=== PATIENT | female | born 1965 | race Caucasian/White ===

== ENCOUNTER 2017-05-15 12:02 | Emergency (ER) | payer MEDICAID ==
[~2017-05-15] VITALS: Ht 5283.9 cm; Wt 68.0 kg
[2017-05-15 12:20] VITALS: BP 132/80
[2017-05-15] MEDS ORDERED: PERM60CR19 TP (13:07)
== END 2017-05-15 13:08 | disposition left against medical advice (07) ==
LOC: ER 12:02
DX: L29.9 Pruritus, unspecified (principal); I10 Essential (primary) hypertension; Z86.19 Personal history of other infectious and parasitic diseases; Z79.899 Other long term (current) drug therapy
CPT/HCPCS: 99282

== ENCOUNTER 2020-08-06 00:50 | Emergency (ER) | payer MEDICAID ==
[~2020-08-06] VITALS: Ht 160 cm; Wt 54.9 kg
[2020-08-06] MEDS ORDERED: orphenadrine citrate 60mg/2ml inj. IM ONE (01:45)
[2020-08-06] MEDS ORDERED: ketorolac trometh inj. 60 MG/2 ML VIAL IM ONE (01:45)
[2020-08-06] MEDS ORDERED: HYDROcodone/acetaminophen 5mg/325mg tablet PO ONE (01:45)
[2020-08-06] MEDS ORDERED: acetaminophen 325mg tablet PO ONE (01:45)
[2020-08-06 04:24] VITALS: BP 142/76
== END 2020-08-06 04:20 | disposition home or self-care (01) ==
LOC: ER 00:51
DX: M54.9 Dorsalgia, unspecified (principal); M79.18 Myalgia, other site; R10.84 Generalized abdominal pain; I10 Essential (primary) hypertension; F32.9 Major depressive disorder, single episode, unspecified; Z72.89 Other problems related to lifestyle
CPT/HCPCS: 96372; 99284; J1885; J2360

== ENCOUNTER 2020-09-12 12:13 | Emergency (ER) | payer MEDICAID ==
[~2020-09-12] VITALS: Ht 160 cm; Wt 51.9 kg
[2020-09-12 13:13] VITALS: BP 114/78
[2020-09-12] MEDS ORDERED: normal saline 1000ML IV soln IV ONE (18:35)
[2020-09-12] MEDS ORDERED: CefTRIAXone 2gm/D5W 50ml BAG 50 ML IV ONE (18:35)
[2020-09-12] MEDS ORDERED: vancomycin/NS 1 GM ADD-VANTAGE 250 ML IV ONE (18:35)
[2020-09-12] MEDS ORDERED: HYDROcodone/acetaminophen 5mg/325mg tablet PO ONE (19:25)
[2020-09-12] MEDS ORDERED: ondansetron 4mg rapidly disintigrating tab PO ONE (19:25)
[2020-09-12 19:26] LABS: BASOPHILS # (AUTO) 0.1 X10'3 (0-0.2); BASOPHILS % (AUTO) 0.5 % (0-1); EOSINOPHILS # (AUTO) 0.2 X10'3 (0-0.9); EOSINOPHILS % (AUTO) 1.6 % (0-6); HEMOGLOBIN 10.1 g/dl (12.0-16.0); LYMPHOCYTES # (AUTO) 3.5 X10'3 (1.1-4.8); LYMPHOCYTES % (AUTO) 31.5 % (21-51); MEAN CORPUSCULAR HEMOGLOBIN 30.5 PG (27.0-31.0); MEAN CORPUSCULAR HGB CONC 33.8 g/dL (33.0-36.5); MEAN CORPUSCULAR VOLUME 90.3 FL (78-98); MONOCYTES # (AUTO) 0.9 X10'3 (0-0.9); MONOCYTES % (AUTO) 7.7 % (2-12); NEUTROPHILS # (AUTO) 6.6 X10'3 (1.8-7.7); NEUTROPHILS % (AUTO) 58.7 % (42-75); PLATELET COUNT 356 X10'3 (140-440); RED BLOOD COUNT 3.33 X10'6 (4.20-5.60); RED CELL DISTRIBUTION WIDTH 13.6 % (11.5-14.5); WHITE BLOOD COUNT 11.3 X10'3 (4.5-11.0)
[2020-09-12 19:47] LABS: ALANINE AMINOTRANSFERASE 12 U/L (12-78); ALBUMIN 3.6 G/DL (3.4-5.0); ALBUMIN/GLOBULIN RATIO 0.7 (1.1-1.5); ALKALINE PHOSPHATASE 131 IU/L (46-116); ANION GAP 14 (8-16); ASPARTATE AMINO TRANSFERASE 12 U/L (10-37); BILIRUBIN,TOTAL 0.2 MG/DL (0.1-1.0); BLOOD UREA NITROGEN 30 MG/DL (7-18); BUN/CREATININE RATIO 18.9 (6.6-38.0); CALCIUM 9.7 MG/DL (8.5-10.1); CHLORIDE 102 MMOL/L (99-107); CREATININE 1.59 MG/DL (0.40-0.90); GLUCOSE 114 MG/DL (70-104); POTASSIUM 3.4 MMOL/L (3.5-5.1); SODIUM 142 MMOL/L (135-145); TOTAL CARBON DIOXIDE 25.9 MMOL/L (24-32); TOTAL PROTEIN 8.7 G/DL (6.4-8.2); eGFR 34 ML/MIN
[2020-09-12] MEDS ORDERED: potassium Cl 20 mEq SR tablet PO ONE (20:05)
[2020-09-12 20:28] LABS: C-REACTIVE PROTEIN 2.98 MG/DL (0.0-0.5)
[2020-09-12] MEDS ORDERED: SULF1TAB45 PO (22:36)
[2020-09-12] MEDS ORDERED: ACET-1025 PO (22:37)
--- NOTE | 2020-09-17 15:13 | NUR ---
ATTEMPTED TO CALL PT REGARDING VISIT ON 09/12. RECEIVED A MSG "PHONE CALL CAN NOT BE COMPEATED AT THIS TIME, PLEASE TRY AGAIN LATER". UNABLE TO LEAVE MSG.
--- NOTE | 2020-09-18 16:20 | NUR ---
Attempted to call patient at listed next of kin number due to patient not having a phone number listed, call could not be completed at dialed. No listed address to send letter.
--- NOTE | 2020-09-18 16:23 | NUR ---
Per Dr. Stubbs, patient is to be paced on clindamycin 300 mg PO QID x 10 days Disp #40 and to stop taking Septra.
== END 2020-09-12 22:47 | disposition home or self-care (01) ==
LOC: ER 12:13
DX: T81.40XA Infection following a procedure, unspecified, initial encounter (principal); M25.571 Pain in right ankle and joints of right foot; I10 Essential (primary) hypertension; F32.9 Major depressive disorder, single episode, unspecified; Z72.89 Other problems related to lifestyle; Z79.899 Other long term (current) drug therapy; Y92.89 Other specified places as the place of occurrence of the external cause; Y82.8 Other medical devices associated with adverse incidents
CPT/HCPCS: 36415; 73610; 80053; 83605; 84145; 85025; 85651; 86140; 87040; 87070; 87077; 87186; 96365; 96368; 99284; J0696; J3370; J7030

== ENCOUNTER 2021-01-09 13:02 | Emergency (ER) | payer MEDICAID ==
[~2021-01-09] VITALS: Ht 157.5 cm; Wt 54.0 kg
[2021-01-09 13:10] VITALS: BP 169/114
[2021-01-09 13:55] LABS: BASOPHILS # (AUTO) 0.1 X10'3 (0-0.2); BASOPHILS % (AUTO) 0.7 % (0-1); EOSINOPHILS # (AUTO) 0.2 X10'3 (0-0.9); EOSINOPHILS % (AUTO) 1.8 % (0-6); HEMATOCRIT 39.3 % (35.0-45.0); HEMOGLOBIN 13.6 g/dl (12.0-16.0); LYMPHOCYTES # (AUTO) 2.4 X10'3 (1.1-4.8); LYMPHOCYTES % (AUTO) 27.4 % (21-51); MEAN CORPUSCULAR HEMOGLOBIN 30.8 PG (27.0-31.0); MEAN CORPUSCULAR HGB CONC 34.6 g/dL (33.0-36.5); MEAN PLATELET VOLUME 8.4 FL (7.4-10.4); MONOCYTES # (AUTO) 0.6 X10'3 (0-0.9); MONOCYTES % (AUTO) 6.8 % (2-12); NEUTROPHILS # (AUTO) 5.7 X10'3 (1.8-7.7); NEUTROPHILS % (AUTO) 63.3 % (42-75); PLATELET COUNT 438 X10'3 (140-440); RED BLOOD COUNT 4.42 X10'6 (4.20-5.60); RED CELL DISTRIBUTION WIDTH 13.5 % (11.5-14.5); WHITE BLOOD COUNT 8.9 X10'3 (4.5-11.0)
[2021-01-09 14:03] LABS: ALANINE AMINOTRANSFERASE 17 U/L (12-78); ALBUMIN 3.9 G/DL (3.4-5.0); ALBUMIN/GLOBULIN RATIO 0.8 (1.1-1.5); ALKALINE PHOSPHATASE 153 IU/L (46-116); ANION GAP 8 (8-16); ASPARTATE AMINO TRANSFERASE 16 U/L (10-37); BILIRUBIN,TOTAL 0.3 MG/DL (0.1-1.0); BLOOD UREA NITROGEN 11 MG/DL (7-18); BUN/CREATININE RATIO 11.6 (6.6-38.0); CALCIUM 9.9 MG/DL (8.5-10.1); CHLORIDE 103 MMOL/L (99-107); CREATININE 0.95 MG/DL (0.40-0.90); GLUCOSE 106 MG/DL (70-104); LIPASE 136 U/L (73-393); POTASSIUM 3.1 MMOL/L (3.5-5.1); SODIUM 142 MMOL/L (135-145); TOTAL CARBON DIOXIDE 30.6 MMOL/L (24-32); TOTAL PROTEIN 8.6 G/DL (6.4-8.2); eGFR 61 ML/MIN
[2021-01-10] MEDS ORDERED: FAMO40TA58 PO (22:01)
[2021-01-10] MEDS ORDERED: ONDA4TAB6 PO (22:01)
== END 2021-01-09 17:38 | disposition left against medical advice (07) ==
LOC: ER 13:02
DX: R10.9 Unspecified abdominal pain (principal); R11.10 Vomiting, unspecified; Z53.21 Procedure and treatment not carried out due to patient leaving prior to being seen by health care provider
CPT/HCPCS: 36415; 80053; 83690; 85025

== ENCOUNTER 2021-01-10 18:31 | Emergency (ER) | payer MEDICAID ==
[~2021-01-10] VITALS: Ht 160 cm; Wt 54.5 kg
[2021-01-10 19:37] LABS: ALANINE AMINOTRANSFERASE 17 U/L (12-78); ALBUMIN 3.9 G/DL (3.4-5.0); ALBUMIN/GLOBULIN RATIO 0.8 (1.1-1.5); ALKALINE PHOSPHATASE 152 IU/L (46-116); ANION GAP 11 (8-16); ASPARTATE AMINO TRANSFERASE 12 U/L (10-37); BILIRUBIN,TOTAL 0.3 MG/DL (0.1-1.0); BLOOD UREA NITROGEN 18 MG/DL (7-18); BUN/CREATININE RATIO 16.4 (6.6-38.0); CALCIUM 9.9 MG/DL (8.5-10.1); CHLORIDE 100 MMOL/L (99-107); GLUCOSE 120 MG/DL (70-104); LIPASE 152 U/L (73-393); POTASSIUM 3.1 MMOL/L (3.5-5.1); SODIUM 140 MMOL/L (135-145); TOTAL PROTEIN 8.8 G/DL (6.4-8.2); eGFR 51 ML/MIN
[2021-01-10 19:42] LABS: BASOPHILS % (AUTO) 0.5 % (0-1); EOSINOPHILS # (AUTO) 0.1 X10'3 (0-0.9); EOSINOPHILS % (AUTO) 1.1 % (0-6); HEMATOCRIT 40.6 % (35.0-45.0); LYMPHOCYTES # (AUTO) 2.3 X10'3 (1.1-4.8); LYMPHOCYTES % (AUTO) 24.9 % (21-51); MEAN CORPUSCULAR HEMOGLOBIN 30.8 PG (27.0-31.0); MEAN CORPUSCULAR HGB CONC 34.5 g/dL (33.0-36.5); MEAN CORPUSCULAR VOLUME 89.3 FL (78-98); MEAN PLATELET VOLUME 8.5 FL (7.4-10.4); MONOCYTES # (AUTO) 0.5 X10'3 (0-0.9); MONOCYTES % (AUTO) 5.8 % (2-12); NEUTROPHILS # (AUTO) 6.1 X10'3 (1.8-7.7); NEUTROPHILS % (AUTO) 67.7 % (42-75); PLATELET COUNT 456 X10'3 (140-440); RED BLOOD COUNT 4.55 X10'6 (4.20-5.60); RED CELL DISTRIBUTION WIDTH 13.7 % (11.5-14.5); WHITE BLOOD COUNT 9.1 X10'3 (4.5-11.0)
[2021-01-10] MEDS ORDERED: mag hydrox/Alum hydrox/simeth 30ml oral suspension PO ONE (20:00)
[2021-01-10] MEDS ORDERED: famotidine/PF 10 mg/ml inj IV ONE (20:00)
[2021-01-10] MEDS ORDERED: normal saline 1000ML IV soln IVB ONE (20:00)
[2021-01-10] MEDS ORDERED: pantoprazole 40 MG vial IV ONE (20:00)
[2021-01-10] MEDS ORDERED: metoclopramide 5 mg/ml inj IV ONE (20:00)
[2021-01-10 20:07] LABS: URINE HCG NEGATIVE (NEG)
[2021-01-10 20:18] LABS: COLOR,URINE YELLOW (Yellow); UA COLLECTION TYPE CLN CATCH MIDSTREAM
[2021-01-10 20:19] LABS: CLARITY,URINE CLOUDY (Clear); GLUCOSE, URINE NEGATIVE (Neg); KETONES,URINE TRACE mg/dl (Neg); LEUKOCYTE ESTERASE ,URINE NEGATIVE (Neg); NITRITES, URINE NEGATIVE (Neg); OCCULT BLOOD,URINE TRACE-INTACT (Neg); PROTEIN,URINE NEGATIVE (Neg); UROBILINOGEN,URINE 0.2 E.U/dL (0.2-1.0)
[2021-01-10 20:32] LABS: BACTERIA,URINE NONE SEEN /HPF (Neg); MUCUS STRANDS NONE SEEN /LPF (Neg); RBC,URINE 0-2 /HPF (0-2); SQUAMOUS EPITHELIAL CELL,UR MANY /LPF (FEW); WBC,URINE 0-4 /HPF (0-4)
[2021-01-10] MEDS ORDERED: potassium Cl 20 mEq SR tablet PO ONE (20:45)
[2021-01-10 21:20] VITALS: BP 141/96
[2021-01-10] MEDS ORDERED: ONDA4TAB6 PO (22:01)
[2021-01-10] MEDS ORDERED: FAMO40TA58 PO (22:01)
== END 2021-01-10 22:14 | disposition home or self-care (01) ==
LOC: ER 18:32
DX: R10.30 Lower abdominal pain, unspecified (principal); R11.2 Nausea with vomiting, unspecified; R30.0 Dysuria; R35.0 Frequency of micturition; E87.6 Hypokalemia; I10 Essential (primary) hypertension; Z87.11 Personal history of peptic ulcer disease; Z79.899 Other long term (current) drug therapy
CPT/HCPCS: 36415; 80053; 81001; 81025; 83605; 83690; 85025; 96361; 96374; 96375; 99284; C9113; J2765; J3490; J7030

== ENCOUNTER 2021-04-27 08:08 | Emergency (ER) | payer MEDICAID ==
[~2021-04-27] VITALS: Ht 160 cm; Wt 59.1 kg
[~2021-04-27 08:08] MED LIST: FAMO40TA58 PO; ONDA4TAB6 PO
[2021-04-27 08:17] VITALS: BP 118/81
[2021-04-27] MEDS ORDERED: CEPH-585 PO (10:58)
[2021-04-27] MEDS ORDERED: TRAM50TA2 PO (10:58)
== END 2021-04-27 11:09 | disposition home or self-care (01) ==
LOC: ER 08:08
DX: S90.01XA Contusion of right ankle, initial encounter (principal); I10 Essential (primary) hypertension; F32.9 Major depressive disorder, single episode, unspecified; X58.XXXA Exposure to other specified factors, initial encounter; Y93.89 Activity, other specified; Y92.89 Other specified places as the place of occurrence of the external cause; Y99.8 Other external cause status
CPT/HCPCS: 73610; 99283

== ENCOUNTER 2021-05-16 17:55 | Emergency (ER) | payer MEDICAID ==
[~2021-05-16] VITALS: Ht 160 cm; Wt 56.9 kg
[~2021-05-16 17:55] MED LIST changes: +CEPH-585 PO; +TRAM50TA2 PO
[2021-05-16 18:07] VITALS: BP 136/79
[2021-05-16] MEDS ORDERED: LIDOcaine 1% W/epiNEPHrine 1:200,000 10ml vial IJ ONE (18:40)
[2021-05-16] MEDS ORDERED: LIDOcaine 1% w/EPI 1:100,000 30ml vial (MDV) IJ ONE (19:15)
[2021-05-16] MEDS ORDERED: piperacillin/tazo 3.375gm/50ml 50 ML IV ONE (19:45)
[2021-05-16 20:19] LABS: BASOPHILS # (AUTO) 0.1 X10'3 (0-0.2); BASOPHILS % (AUTO) 0.8 % (0-1); EOSINOPHILS # (AUTO) 0.2 X10'3 (0-0.9); EOSINOPHILS % (AUTO) 2.3 % (0-6); HEMATOCRIT 33.3 % (35.0-45.0); HEMOGLOBIN 11.4 g/dl (12.0-16.0); LYMPHOCYTES % (AUTO) 30.9 % (21-51); MEAN CORPUSCULAR HEMOGLOBIN 30.3 PG (27.0-31.0); MEAN CORPUSCULAR HGB CONC 34.4 g/dL (33.0-36.5); MEAN CORPUSCULAR VOLUME 88.3 FL (78-98); MEAN PLATELET VOLUME 8.3 FL (7.4-10.4); MONOCYTES # (AUTO) 0.9 X10'3 (0-0.9); MONOCYTES % (AUTO) 9.2 % (2-12); NEUTROPHILS # (AUTO) 5.5 X10'3 (1.8-7.7); NEUTROPHILS % (AUTO) 56.8 % (42-75); PLATELET COUNT 304 X10'3 (140-440); RED BLOOD COUNT 3.77 X10'6 (4.20-5.60); RED CELL DISTRIBUTION WIDTH 14.9 % (11.5-14.5); WHITE BLOOD COUNT 9.7 X10'3 (4.5-11.0)
[2021-05-16 20:33] LABS: ALANINE AMINOTRANSFERASE 14 U/L (12-78); ALBUMIN 3.6 G/DL (3.4-5.0); ALBUMIN/GLOBULIN RATIO 0.8 (1.1-1.5); ALKALINE PHOSPHATASE 154 IU/L (46-116); ANION GAP 9 (8-16); ASPARTATE AMINO TRANSFERASE 13 U/L (10-37); BILIRUBIN,TOTAL 0.5 MG/DL (0.1-1.0); BLOOD UREA NITROGEN 15 MG/DL (7-18); C-REACTIVE PROTEIN 12.31 MG/DL (0.0-0.5); CHLORIDE 102 MMOL/L (99-107); GLUCOSE 91 MG/DL (70-104); POTASSIUM 3.1 MMOL/L (3.5-5.1); SODIUM 139 MMOL/L (135-145); TOTAL PROTEIN 7.9 G/DL (6.4-8.2); eGFR 57 ML/MIN
[2021-05-16] MEDS ORDERED: sulfamethoxazole/trimethoprim DS (800/160mg) tablet PO ONE (21:45)
[2021-05-16] MEDS ORDERED: SULF1TAB49 PO (21:52)
== END 2021-05-16 22:18 | disposition home or self-care (01) ==
LOC: ER 17:55
DX: L02.415 Cutaneous abscess of right lower limb (principal); M25.571 Pain in right ankle and joints of right foot; I10 Essential (primary) hypertension; F32.A Depression, unspecified; Z87.11 Personal history of peptic ulcer disease; Z72.89 Other problems related to lifestyle; Z79.2 Long term (current) use of antibiotics; Z79.899 Other long term (current) drug therapy
CPT/HCPCS: 10060; 36415; 73610; 80053; 84145; 85025; 85651; 86140; 96365; 99284; J2543

== ENCOUNTER 2021-08-24 11:47 | Emergency (ER) | payer MEDICAID ==
[~2021-08-24] VITALS: Ht 160 cm; Wt 54.5 kg
[~2021-08-24 11:47] MED LIST changes: -TRAM50TA2 PO
[2021-08-24 13:29] VITALS: BP 147/70
== END 2021-08-24 16:49 | disposition home or self-care (01) ==
LOC: ER 11:48
DX: S91.001A Unspecified open wound, right ankle, initial encounter (principal); I10 Essential (primary) hypertension; F32.9 Major depressive disorder, single episode, unspecified; Z72.89 Other problems related to lifestyle; Z79.899 Other long term (current) drug therapy; X58.XXXA Exposure to other specified factors, initial encounter; Y93.89 Activity, other specified; Y92.89 Other specified places as the place of occurrence of the external cause; Y99.8 Other external cause status
CPT/HCPCS: 73600; 96372; 99283

== ENCOUNTER 2022-10-13 19:57 | Emergency (ER) | payer MEDICAID ==
[~2022-10-13 19:57] MED LIST changes: -CEPH-585 PO
== END 2022-10-13 21:09 | disposition left against medical advice (07) ==
LOC: ER 19:58
DX: M54.9 Dorsalgia, unspecified (principal); Z53.21 Procedure and treatment not carried out due to patient leaving prior to being seen by health care provider

== ENCOUNTER 2023-12-01 12:58 | Emergency (ER) | payer MEDICAID ==
[~2023-12-01] VITALS: Ht 160 cm; Wt 51.7 kg
[2023-12-01 13:25] VITALS: BP 121/100; PULSE 99; RESP 21; TEMP 98.2; O2SAT 97
[2023-12-01 14:24] LABS: STREP A SCREEN NEGATIVE (Neg)
== END 2023-12-01 14:47 | disposition left against medical advice (07) ==
LOC: ER 12:59
DX: J02.9 Acute pharyngitis, unspecified (principal); Z53.21 Procedure and treatment not carried out due to patient leaving prior to being seen by health care provider
CPT/HCPCS: 87081; 87880

== ENCOUNTER → 2024-04-30 | Emergency (ER) | payer MEDICAID | END | disposition left against medical advice (07) | LOC: ER 19:37 | DX: Z53.21 Procedure and treatment not carried out due to patient leaving prior to being seen by health care provider (principal) ==

== ENCOUNTER 2024-06-09 17:35 | Emergency (ER) | payer MEDICAID ==
[~2024-06-09] VITALS: Ht 157.5 cm; Wt 43.7 kg
[2024-06-09 17:41] VITALS: BP 135/90; PULSE 100; TEMP 97.6; O2SAT 95
[2024-06-09] MEDS: ketorolac trometh 30MG/ML vial 30 MG/ML VIAL IM ONE (19:23)
[2024-06-09] MEDS: ketorolac trometh 15mg/ml vial 15 MG/ML ML IM ONE (19:23)
[2024-06-09 20:23] VITALS: RESP 16
[2024-06-09] MEDS ORDERED: CYCL-1 PO (20:47)
[2024-06-09] MEDS ORDERED: LIDO700A32 TOP (20:47)
== END 2024-06-09 21:03 | disposition home or self-care (01) ==
LOC: ER 17:36
DX: M79.671 Pain in right foot (principal); S90.01XA Contusion of right ankle, initial encounter; I10 Essential (primary) hypertension; V89.2XXA Person injured in unspecified motor-vehicle accident, traffic, initial encounter; Y93.89 Activity, other specified; Y92.89 Other specified places as the place of occurrence of the external cause; Y99.8 Other external cause status
CPT/HCPCS: 73590; 73610; 73630; 96372; 99284; J1885

== ENCOUNTER 2024-10-05 13:49 | Emergency (ER) | payer MEDICAID ==
[~2024-10-05] VITALS: Ht 160 cm; Wt 53.5 kg
[~2024-10-05 13:49] MED LIST changes: +CYCL-1 PO; +DONE-53 PO; +LIDO-52 TOP; +LISI10TA27 PO; +RISP1TAB13 PO
--- NOTE | 2024-10-05 14:44 | RADIOLOGY REPORT ---
EXAM: DI SHOULDER, COMPLETE (MIN 2 VWS) HISTORY: Shoulder Pain COMPARISON: None TECHNIQUE: AP and scapular Y views of the right shoulder were performed. FINDINGS: No acute fracture or dislocation are identified about the right shoulder. No significant degenerativ e changes or loss of subacromial space. IMPRESSION: Unremarkable radiographs of the right shoulder.
[2024-10-05] MEDS ORDERED: HYDR-3965 PO (15:01)
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
[2024-10-05 15:15] VITALS: BP 136/70; PULSE 71; RESP 17; TEMP 98; O2SAT 98
== END 2024-10-05 15:16 | disposition home or self-care (01) ==
LOC: ER 13:50
DX: M25.511 Pain in right shoulder (principal); I10 Essential (primary) hypertension; Z87.11 Personal history of peptic ulcer disease
CPT/HCPCS: 73030; 99284

== ENCOUNTER 2024-10-11 19:57 | Emergency (ER) | payer MEDICAID ==
[~2024-10-11] VITALS: Ht 160 cm; Wt 56.5 kg
[~2024-10-11 19:57] MED LIST changes: +HYDR-3965 PO
[2024-10-11 21:00] VITALS: BP 164/103; PULSE 86; RESP 18; O2SAT 99
--- NOTE | 2024-10-11 21:49 | Physician Documentation ---
History of Present Illness ~ Chief Complaint: Laceration Stated Complaint: FINGER PAIN Time Seen by MD: 21:36 Primary Medical Doctor: Irma Lundy HPI 59-year-old female presents to the ED with a complaint of a laceration on her right 5th finger. She states she cut her finger on a fence today. Reports being up-to-date on her tetanus Day of Onset: Oct 11, 2024 Tetanus Within 5 Years: No (2015) Medication Reconciliation Allergies: Coded Allergies: No Known Allergies (Unverified , 10/11/24) Scheduled Cyclobenzaprine* (Cyclobenzaprine*), 1 TAB PO HS Donepezil Hcl (Donepezil Hcl), 15 MG PO HS Famotidine (Famotidine), 1 TAB PO DAILY Lidocaine (Lidoderm), 1 PATCH TOP DAILY Lisinopril (Lisinopril), 10 MG PO DAILY Ondansetron Hcl (Zofran), 1 TAB PO Q6H Risperidone (Risperdal), 1 TAB PO HS Discontinued Medications Hydrocodone Bit/Acetaminophen 5/325 MG ([place] 5/325 MG), 1 TAB PO TID PRN PRN for pain Discontinued Reason: Auto Discontinued Past Medical History Past Medical History: Hypertension, Peptic Ulcer Disease, Depression Past Surgical History: no surgical history Alcohol Use: Sober Drug Use: none Lives with: Family, Other Lives In: Home Occupation: employed Review of Systems All Other Systems at this time: Reviewed and Negative ROS As stated above in the HPI, otherwise all systems are reviewed and negative. Physical Exam Vital Signs: Temperature: 98.2, Source: Temporal, Heart Rate: 86, Respiratory Rate: 18, BP: 164/103, Pulse Oximetry: 99, Weight: 56.550 Oxygen Flow Rate: 0 Physical Exam General: Alert, no apparent distress. HEENT: PERRL, EOMI, no injection, moist mucous membranes. Extremities: Normal range of motion, laceration proximal phalanges bleeding controlled Neurologic: Oriented x4. Psychiatric: Normal mood and affect. Skin: Normal color, warm and dry. No edema, no ecchymosis. Procedures Laceration/Wound Repair Laceration : Prep: irrigated by nurse Wound Repaired With: Dermabond Progress Results/Orders Results/Orders Completed Orders - ANDERSON LEON NP Lidocaine/Epi/Tetracaine Top (Lidocaine/ (10/11/24 21:45) Tetanus/Pertuss/Diph Acell/Pf (Boostrix (10/11/24 22:15) Vital Signs 10/11/24 10/11/24 21:00 22:06 Temp 98.2 98.2 Pulse 86 Resp 18 B/P (MAP) 164/103 Pulse Ox 99 O2 Flow Rate 0 Medical Decision Making Findings Spoke to this patient did not and I advised that she requires sutures her hand to prevent infection and promote healing. She adamantly refused said that she only wanted glue on her finger. I repeated that that has not the best medical choice for this patient. She refused again. This time she agreed to get skin glue. and a tetanus shot. advised of the risks up to including loss of the finger secondary to infection. Differential Dx:Considerations: Include: Abrasion, Avulsion, Contusion, Laceration, Fracture, Hematoma, Neurovascular injury, Retained foreign body, Other Departure Disposition: 01 HOME / SELF CARE / HOMELESS Impression: Primary Impression: Laceration Condition: Improved Discharge Instructions: Laceration Care (Skin Glue) Referrals: NO PRIMARY CARE PROVIDER (PCP) Prescriptions Doxycycline Monohydrate (Doxycycline Monohydrate) 100 Mg Capsule 1 CAP PO Q12H for 10 Days, #20 CAP Prov: ANDERSON LEON NP 10/11/24 Education Educated: Patient Educated regarding: diagnosis Signature Scribe Signature: logan Attestation: Scribed for Anderson Leon Vessel Traffic Officer by Anderson Mcbride NP . 10/11/24 21:49 ANDERSON LEON NP Oct 11, 2024 21:49
[2024-10-11] MEDS: LIDOcaine/epinephrine/tetracaine TOPICAL sol 3 ML syringe TOP ONE (22:00)
[2024-10-11 22:06] VITALS: TEMP 98.2
[2024-10-11] MEDS ORDERED: TETanus/Pertussis (Acell)/Diphther VAC/PF (Tdap-Adult) 0.5ml syringe IMVAC ONE (22:15)
[2024-10-11] MEDS ORDERED: DOXY-462 PO (22:26)
== END 2024-10-11 22:14 | disposition home or self-care (01) ==
LOC: ER 19:57
DX: S61.216A Laceration without foreign body of right little finger without damage to nail, initial encounter (principal); I10 Essential (primary) hypertension; F32.A Depression, unspecified; Z79.899 Other long term (current) drug therapy; W26.8XXA Contact with other sharp object(s), not elsewhere classified, initial encounter; Y93.89 Activity, other specified; Y92.89 Other specified places as the place of occurrence of the external cause; Y99.8 Other external cause status
CPT/HCPCS: 12001; 99283; J7030

== ENCOUNTER 2025-02-06 18:10 | Inpatient (IN) | payer MEDICAID, SELFPAY ==
[~2025-02-06] VITALS: Ht 157.5 cm; Wt 57.0 kg
[~2025-02-06 18:10] MED LIST changes: -HYDR-3965 PO
[2025-02-06 18:43] LABS: MEAN PLATELET VOLUME 8.5 FL (7.4-10.4); RED CELL DISTRIBUTION WIDTH 13.7 % (11.5-14.5)
[2025-02-06 19:03] LABS: CREATININE 0.94 MG/DL (0.40-0.90); PRO BRAIN NATRIURETIC PEPTIDE 126 PG/ML (0-125); TOTAL CARBON DIOXIDE 28.9 MMOL/L (24-32); eCRCL 50 ML/MIN; eGFR 61 ML/MIN
--- NOTE | 2025-02-06 19:05 | RADIOLOGY REPORT ---
CLINICAL HISTORY: CP TECHNIQUE: Single view of the chest was obtained. COMPARISON: None FINDINGS: The heart size and pulmonary vasculature are normal. The lungs are clear. IMPRESSION: NO ACUTE CARDIOPULMONARY PROCESS.
[2025-02-06 21:42] LABS: LEUKOCYTE ESTERASE ,URINE NEGATIVE (Neg); NITRITES, URINE POSITIVE (Neg); OCCULT BLOOD,URINE NEGATIVE (Neg)
[2025-02-06 21:51] LABS: UA COLLECTION TYPE CLN CATCH MIDSTREAM
[2025-02-06 21:54] LABS: SQUAMOUS EPITHELIAL CELL,UR MODERATE /LPF (FEW)
--- NOTE | 2025-02-06 22:08 | Physician Documentation ---
History of Present Illness ~ Chief Complaint: Syncope Stated Complaint: SYNCOPE Time Seen by MD: 21:58 Primary Medical Doctor: Irma Lundy Mode of Arrival: EMS HPI Patient presents to the emergency room brought in from the [place] with the parent syncopal episodes. Significant other at bedside states that they were just getting ready for dinner and that has some concern of blood pressure and she started passing out multiple times. Nurse has witnessed syncopal episodes and describes in his atypical. No postictal period. Patient states that she does not remember anything. She does endorse some degree of chest pain. Medication Reconciliation Allergies: Coded Allergies: No Known Allergies (Unverified , 02/06/25) Scheduled Donepezil Hcl (Donepezil Hcl), 1 TAB PO DAILY, (Reported) Famotidine (Famotidine), 1 TAB PO BID, (Reported) Lisinopril/Hydrochlorothiazide (Lisinopril-Hctz 20-12.5 mg Tab), 1 TAB PO BID, (Reported) Risperidone (Risperidone), 1 TAB PO HS, (Reported) Miscellaneous Medications Albuterol Sulfate/Budesonide (Airsupra 90-80 Mcg Inhaler), (Reported) Discontinued Medications Cyclobenzaprine* (Cyclobenzaprine*), 1 TAB PO HS Discontinued Reason: Other Donepezil Hcl (Donepezil Hcl), 15 MG PO HS Discontinued Reason: Other Famotidine (Famotidine), 1 TAB PO DAILY Discontinued Reason: Other Lidocaine (Lidoderm), 1 PATCH TOP DAILY Discontinued Reason: Other Lisinopril (Lisinopril), 10 MG PO DAILY Discontinued Reason: Other Ondansetron Hcl (Zofran), 1 TAB PO Q6H Discontinued Reason: Other Risperidone (Risperdal), 1 TAB PO HS Discontinued Reason: Other Past Medical History Past Medical History: Hypertension, Peptic Ulcer Disease, Depression Past Surgical History: no surgical history Alcohol Use: Sober Drug Use: none Lives with: Family, Other Lives In: Home Occupation: employed Review of Systems ROS All review of systems negative except as per HPI Physical Exam Vital Signs: Temperature: 98.4, Source: Oral, Heart Rate: 98, Respiratory Rate: 19, BP: 140/91, Pulse Oximetry: 97, Weight: 57.000 Oxygen Flow Rate: 0 Physical Exam General: Patient is awake, alert, oriented x4 in no acute distress Head: Normocephalic and atraumatic. Eyes: Conjunctival normal. EOMI. PERRL. ENT: Mucous membranes moist. Neck: Supple, trachea is midline. Chest: Clear to auscultation bilaterally without rales, rhonchi, or wheezes. There is no accessory muscle use or retractions. Cardiac: RRR without murmurs, gallops, or rubs. Extremities: Normal strength. Normal range of motion. No deformities or edema. No calf tenderness to palpation Progress Results/Orders Results/Orders Orders - ALY VINES MD Chest,Single View (02/06/25 18:22) Monitor (02/06/25 18:22) Saline Lock (02/06/25 18:22) Oxygen (02/06/25 18:22) Electrocardiogram (02/06/25 18:22) Cult Urine + [place] [address] (02/06/25 21:56) Page Hospitalist (02/06/25 22:08) Fill Out Med Reconciliation (02/06/25 22:08) Completed Orders - ALY VINES MD Chest,Single View (02/06/25 18:22) Cbc/Diff (02/06/25 18:22) BMP (02/06/25 18:22) PBNP (02/06/25 18:22) Hs Troponin I W Calculations (02/06/25 18:22) Hs Troponin I W Calculations (02/06/25 20:22) Hs Troponin I W Calculations (02/06/25 21:22) Ua W/Microscopic, Cult If Ind (02/06/25 20:42) Drug Screen, Urine (02/06/25 21:59) Acetaminophen 325mg Tablet (Tylenol Tabl (02/06/25 22:10) Medications Received in ER Medications (Trade) Dose Ordered Sig/Tanner Route PRN Reason Start Time Stop Time Status Last Admin Dose Admin (Tylenol tablet) 325 mg ONCE ONCE PO 02/06/25 22:10 02/06/25 22:11 DC 02/06/25 22:12 325 MG Vital Signs 02/06/25 02/06/25 02/06/25 02/06/25 18:15 18:27 19:34 20:45 Temp 98.4 Pulse 105 100 98 Resp 20 16 21 19 B/P (MAP) 163/104 131/73 (92) 140/91 (107) Pulse Ox 99 98 97 O2 Flow Rate 0 0 0 02/06/25 22:05 Pulse 99 Resp 17 B/P (MAP) 153/103 (120) Pulse Ox 98 O2 Flow Rate 0 Laboratory Tests Test 02/06/25 18:26 02/06/25 20:42 02/06/25 20:51 02/06/25 21:19 White Blood Count 7.6 Red Blood Count 4.13 L Hemoglobin 12.3 Hematocrit 36.3 Mean Corpuscular Volume 87.8 Mean Corpuscular Hemoglobin 29.6 Mean Corpuscular Hemoglobin Concent 33.8 Red Cell Distribution Width 13.7 Platelet Count 265 Mean Platelet Volume 8.5 Neutrophils (%) (Auto) 60.6 Lymphocytes (%) (Auto) 26.4 Monocytes (%) (Auto) 7.2 Eosinophils (%) (Auto) 4.8 Basophils (%) (Auto) 1.0 Neutrophils # (Auto) 4.6 Lymphocytes # (Auto) 2.0 Monocytes # (Auto) 0.6 Eosinophils # (Auto) 0.4 Basophils # (Auto) 0.1 CBC Comment Sodium Level 142 Potassium Level 3.2 L Chloride Level 106 Carbon Dioxide Level 28.9 Anion Gap 7 L Blood Urea Nitrogen 17 Creatinine 0.94 H Estimated GFR/1.73 m2 61 BUN/Creatinine Ratio 18.1 Glucose Level 93 Calcium Level 8.1 L Troponin I High Sensitivity 8 10 9 Pro-B-Type Natriuretic Peptide 126 H Albumin 3.4 Chemistry Comments Urine Specimen Description Cln catch midstream Urine Color Yellow Urine Clarity Cloudy Urine pH 6.5 Urine Specific Brooks 1.020 Urine Protein Negative Urine Glucose (UA) Negative Urine Ketones Negative Urine Occult Blood Negative Urine Nitrite Positive H Urine Bilirubin Negative Urine Urobilinogen 0.2 Urine Leukocyte Esterase Negative Urine RBC 0-2 Urine WBC 10-20 H Urine Squamous Epithelial Cells Moderate Urine Bacteria 4+ Urine Culture Indicated Indicated Volume Urine Centrifuged 10 ml Urine Comment Urine Opiates Screen Negative Urine Methadone Screen Negative Urine Fentanyl Screen Negative Urine Barbiturates Screen Negative Urine Phencyclidine Screen Negative Urine Amphetamines Screen Positive Urine Benzodiazepines Screen Negative Urine Cocaine Screen Negative Urine Cannabinoids Screen Positive Drug Screen Comment Troponin I High Sens Percent Delta 25 12 Troponin I Hi Sens Absolute Change 2 1 Microbiology Date/Time Source Procedure Growth Status 02/06/25 21:56 Urine Clean Catch Midstream Urine Culture - Preliminary Culture received. Resulted EKG/XRAY/CT/US/VASC/MRI EKG : Additional Comment EKG interpreted by myself shows time of 18 18, rate 101, sinus tachycardia, normal axis, no ST changes Chest X-Ray : Additional Comments Exam: CHEST,SINGLE VIEW CLINICAL HISTORY: CP TECHNIQUE: Single view of the chest was obtained. COMPARISON: None FINDINGS: The heart size and pulmonary vasculature are normal. The lungs are clear. IMPRESSION: NO ACUTE CARDIOPULMONARY PROCESS. Medical Decision Making Additional information obtaine: old records Findings Patient presents to the emergency room for evaluation of multiple episodes of syncope. Apparently syncope has been unprovoked. Differentials include but are not limited to ACS, cardiac arrhythmia, vasovagal, seizure. Given patient's age and risk factors and multiple episodes of syncope we will admit for further investigation. Differential Dx:Considerations: Include: anemia, CVA, cerebral occlusion, cerebral thrombosis, dehydration, dysrhythmia, electrolyte disorder, encephalopathy, hypoglycemia, hypovolemia, labyrinthitis, Meniere's disease, myocardial infarction, pulmonary embolus, TIA, vasovagal, VBI, vertigo central, vertigo peripheral, vestibular neuronitis, other Departure Admitted to Inpatient Unit: yes, to hospitalist Impression: Primary Impression: Unprovoked syncope Condition: Guarded Referrals: NO PRIMARY CARE PROVIDER (PCP) Signature Scribe Signature: No scribe Attestation: The note accurately reflects work and decisions made by me.Aly Vines MD 02/06/25 22:08 ALY VINES MD Feb 06, 2025 22:08
[2025-02-06] MEDS ORDERED: LISI1TAB51 PO (22:21)
[2025-02-06] MEDS ORDERED: RISP-31 PO (22:21)
[2025-02-06] MEDS ORDERED: ALBU10.7 (22:21)
[2025-02-06] MEDS ORDERED: FAMO20TA8 PO (22:21)
[2025-02-06] MEDS ORDERED: DONE-46 PO (22:21)
[2025-02-06 22:38] LABS: URINE AMPHETAMINE SCREEN POSITIVE (Neg); URINE BARBITUATE SCREEN NEGATIVE (Neg); URINE BENZODIAZEPINES SCREEN NEGATIVE (Neg); URINE CANNABINOID SCREEN POSITIVE (Neg); URINE COCAINE SCREEN NEGATIVE (Neg); URINE METHADONE SCREEN NEGATIVE (Neg); URINE OPIATE SCREEN NEGATIVE (Neg); URINE PHENCYCLIDINE SCREEN NEGATIVE (Neg)
[2025-02-06] MEDS ORDERED: mag hydrox/Alum hydrox/simeth 30ml oral suspension PO PRN (22:55)
[2025-02-06] MEDS ORDERED: ondansetron/PF 4mg/2ml inj IV PRN (22:55)
[2025-02-06] MEDS ORDERED: potassium Cl 40MEQ/1/2NS 520ml 520 ML IV PRN (22:55)
[2025-02-06] MEDS ORDERED: magnesium sulf-water 2g/50mL 50 ML IV PRN (22:55)
[2025-02-06] MEDS ORDERED: potassium Cl 20 mEq SR tablet PO PRN (22:55)
[2025-02-06] MEDS ORDERED: magnesium hydroxide 30ml (MOM) UD suspension PO PRN (22:55)
[2025-02-06] MEDS ORDERED: magnesium sulf-water 4G/100mL 100 ML IV PRN (22:55)
[2025-02-06] MEDS ORDERED: magnesium Cl slow-release 64mg tablet PO PRN (22:55)
[2025-02-06] MEDS: PERFLUTREN PROTEIN-A MICROSPHR (Optison) 0.22 MG/ML 3ML VIAL IV ONE (23:11)
[2025-02-06] MEDS: normal saline 1000ml 1,000 ML IV SCH (23:24)
[2025-02-07] VITALS (7 sets, daily range): BP systolic 111–155; BP diastolic 67–109; PULSE 68–111; RESP 15–20; TEMP 97.8; O2SAT 95–99
[2025-02-07] MEDS: potassium Cl 20 mEq SR tablet PO PRN (00:53)
--- NOTE | 2025-02-07 02:27 | HISTORY AND PHYSICAL-Residence ---
History & Physical Providers to CC Resident Creating Document: DOMINIQUE GOMES RES ~ History of Present Illness Primary Medical Doctor: Irma Lundy Reason for Admit\Complaint: Syncopal episode History of Present Illness A 59-year-old female presented to the ED today following a syncopal episode. According to the patient and her boyfriend, during dinner she reported that her head was swaying and patient was not responding for a few minutes, became groggy, and 911 was called. She initially wanted to leave AMA to smoke, but after discussion with her boyfriend and bedside staff, she agreed to stay.She has a history of COPD (uses inhaler at home) and hypertension (on lisinopril and hydrochlorothiazide). She reports intermittent chest pressure radiating to the shoulders over the past 18 months, but no chest pain currently. She has significant tobacco use (1 pack/day for 50 years) and substance use including marijuana and methamphetamine. She experiences severe leg pain but refused a full examination of her lower extremities. She is homeless, [facility] her boyfriend. She has a history of psychiatric admissions for depression and suicidal ideation. Recent labs: CBC: normal Creatinine: 0.94 BNP: 126 Troponin: negative UA: nitrite positive, WBC 1020 Urine tox: positive for amphetamines and marijuana Allergies: Coded Allergies: No Known Allergies (Unverified , 02/06/25) Home Medications Home Medications Active Reported Airsupra 90-80 Mcg Inhaler (Albuterol Sulfate/Budesonide) 90 Mcg-80 Mcg/Actuation Hfa.aer.ad Donepezil Hcl 5 Mg Tablet 1 Tab PO DAILY Risperidone 1 Mg Tablet 1 Tab PO HS Famotidine 20 Mg Tablet 1 Tab PO BID Lisinopril-Hctz 20-12.5 mg Tab (Lisinopril/Hydrochlorothiazide) 20 Mg-12.5 Mg Tablet 1 Tab PO BID Past Medical History Past Medical History Depression Hypertension Depression Suicidal ideation COPD Substance abuse disorder Tobacco use disorder Past Surgical History Surgical History Comment Right-sided Tibia and fibula surgery Past Social History Smoking: Cigarettes, Less than 1 pack/day Alcohol Use: Sober Drug Use: None Lives with: Family, Other Lives In: Home Occupation: employed ROS ROS Reviewed in full. All negative except for pertinent positive HPI. Exam Vitals: Vital Signs Date Time Temp Pulse Resp B/P (MAP) Pulse Ox O2 Delivery O2 Flow Rate FiO2 02/07/25 00:04 92 18 155/102 (119) 100 0 02/06/25 18:15 98.4 General: Awake , alert, and oriented x4, but groggy and drowsy HEENT: Atraumatic, normocephalic, EOMI, anicteric sclera ; pink conjunctiva Neck: Trachea midline. Supple, full range of motion, no JVD Cardiac: Regular rhythm, regular rate with no murmurs all over the precordium. Respiratory: Equal breath sounds bilaterally, no tachypnea, no wheezing ,rub or rales, Chest wall is symmetric and without deformity. Gastrointestinal: Abdomen symmetric, non-distended, soft, non-tender, normal bowel sounds x4 quadrant, normoactive, no hepatosplenomegaly Lower extremities could not be examined as patient denied due to pain Neurological: Could not be performed Skin: Warm and dry Diagnostic Data Last Recorded Lab Results: 02/06/25182502/06/251825 Advance Care Planning Advanced Care plannin - 30 Minutes Additional Plan 1. Syncope-cardiogenic versus vasovagal Likely multifactorial (orthostatic, vasovagal, cardiac, substance-related). No ongoing chest pain, vitals stable. History of transient loss of responsiveness. Cardiac Monitoring: Continue tele monitor Echocardiogram ordered Consider Holter/Event monitor for outpatient follow-up if recurrent intermittent episodes not captured in hospital. Due to suspicion of PE ordered D-dimer levels however Wells score is 1.5, (low) Orthostatic / Autonomic Evaluation: Ordered orthostatic vitals (supine, sitting, standing). Monitor for symptoms with position change CT head ordered Laboratory and Metabolic Evaluation: Magnesium, calcium, glucose levels ordered ProBNP 126 Monitor urine output; maintain =0.5 mL/kg/hr. Medication Review: Patient is on lisinopril and hydrochlorothiazide per boyfriend at home Hold antihypertensives for now Fall precautions in place NPO until patient passes bedside swallow eval 2. Chest pressure / Cardiovascular risk Chronic intermittent chest pressure, history of hypertension and significant smoking; cardiac etiology cannot be ruled out Plan: Rule out ACS: serial troponins negative Stress test ordered follow up Optimize BP control (lisinopril/HCTZ) Blueprint Developer on smoking cessation 3. COPD Stable at baseline; uses inhaler Plan: DuoNebs q.4h scheduled ordered, albuterol PRN ordered Monitor O2 saturation, assess for respiratory distress Pulmonology outpatient follow up 4. Substance use (methamphetamine, marijuana, tobacco) Contributing to syncopal episode, cardiovascular risk and psychiatric issues Plan: Urine tox positive; supportive care Consider referral to substance use treatment program 5. Lower extremity pain Possible peripheral arterial disease/ deep vein thrombosis Severe leg pain, limited examination Plan: Pain control as tolerated Encourage evaluation when patient consents No signs of DVT currently, Ordered vascular venous ultrasound 6. Urinary tract Infection UA positive nitrites and WBC 10- 20 possible urinary tract infection Plan: Ordered empirically antibiotics, ceftriaxone 1 g IV daily Pending urine cultures Hydration and symptom monitoring 7. Psychiatric history History of depression and suicidal ideation; homeless, limited social support Plan: Psychiatric evaluation outpatient Social work consult for housing and follow-up support Code Status: Full code status per boyfriend DVT Prophylaxis: Heparin SQ Line/tubes: P IV Nutrition: NPO until patient passes bedside swallow eval PT: Ordered Prognosis: Guarded Dominique Gomes MD Internal Medicine Resident, PGY-2 Patient evaluated with the resident using HIPPA compliant AV device Agree with plan as discussed with the resident Rosalee Camargo MD Date of Service: Feb 07, 2025 Billing Provider: ROSALEE CAMARGO MD, GAURAV, DAQUAN Feb 07, 2025 02:27 ROSALEE CAMARGO MD Feb 07, 2025 05:27
[2025-02-07] MEDS ORDERED: aminophylline 250mg/10ml inj. IV PRN (02:55)
[2025-02-07] MEDS ORDERED: metoprolol tartrate 1mg/ml inj IV PRN (02:55)
[2025-02-07] MEDS ORDERED: regadenoson 0.4mg/5ml syringe IV PRN (02:55)
[2025-02-07] MEDS ORDERED: ipratropium/albuterol 3ml nebule NEB PRN (03:00)
[2025-02-07] MEDS: ipratropium/albuterol 3ml nebule NEB SCH (03:31)
[2025-02-07] MEDS: nicotine 21mg patch - 24 hr TD ONE (05:22)
--- NOTE | 2025-02-07 06:41 | ELECTROCARDIOGRAPH REPORT ---
[facility] Test Date: 2025-02-06 Test Time: 18:18:49 Pat Name: SONAL GERARD Department: EMERGENCY ROOM Room: ORTHO [address] Gender: F Lead Data Entry Operator: RENEE : 1965 Requested By: CELINA PAK Order Number: [id number] Reading MD: Dr. AMPARO Vick Measurements Intervals [place] Rate: 101 P: 82 [place]: 142 QRS: 74 QRSD: 92 T: 55 QT: 370 QTc: 480 Interpretive Statements Sinus tachycardia Electronically Signed On 02-08-2025 16:51:[address] AMPARO Vick Please click the below link to view image of tracing.
[2025-02-07] MEDS ORDERED: docusate sod 100mg capsule PO SCH (08:00)
[2025-02-07] MEDS ORDERED: K and/or MAG REPLACEMENT MC SCH (08:00)
[2025-02-07] MEDS ORDERED: CefTRIAXone/D5W-Rocephin 1gm 50 ML IV SCH (08:00)
[2025-02-07] MEDS ORDERED: heparin, porcine 5000 units/ml vial SQ SCH (08:00)
[2025-02-07] MEDS ORDERED: PERFLUTREN PROTEIN-A MICROSPHR (Optison) 0.22 MG/ML 3ML VIAL IV ONE (10:00)
--- NOTE | 2025-02-07 12:44 | DISCHARGE SUMMARY-Residence ---
Discharge Summary Providers to CC Resident Creating Document: [facility], [facility] ~ Discharge Summary Admission Diagnosis: Syncope Hospital Course DATE OF ADMISSION: 02/07/2025 DATE OF DISCHARGE: 02/07/2025 Discharge Diagnosis\Comment: Acute metabolic encephalopathy 2/2 methamphetamine use Operations\Procedures: None Consultants: None Complications: None Condition on DC: Unstable (Patient left against medical advice despite expla ining the risks of leaving) Discharge Summary: History of present illness A 59-year-old female presented to the ED today following a syncopal episode. According to the patient and her boyfriend, during dinner she reported that her head was swaying and patient was not responding for a few minutes, became groggy, and 911 was called. She initially wanted to leave AMA to smoke, but after discussion with her boyfriend and bedside staff, she agreed to stay.She has a history of COPD (uses inhaler at home) and hypertension (on lisinopril and hydrochlorothiazide). She reports intermittent chest pressure radiating to the shoulders over the past 18 months, but no chest pain currently. She has significant tobacco use (1 pack/day for 50 years) and substance use including marijuana and methamphetamine. She experiences severe leg pain but refused a full examination of her lower extremities. She is homeless, [facility] with her boyfriend. She has a history of psychiatric admissions for depression and suicidal ideation Hospital course Patient was admitted with altered mental status secondary to methamphetamine use and marijuana use, in addition the patient also mentioned having chest pressure, COPD, lower extremity pain and we initially started on pain control and symptomatic control with medication. During the morning patient is active but she could not remember her name and confused and she left against medical advice despite explaining about the risk of leaving the hospital Physical examination Awake , alert, and oriented x4, but groggy and drowsy HEENT: Atraumatic, normocephalic, EOMI, anicteric sclera ; pink conjunctiva Neck: Trachea midline. Supple, full range of motion, no JVD Cardiac: Regular rhythm, regular rate with no murmurs all over the precordium. Respiratory: Equal breath sounds bilaterally, no tachypnea, no wheezing ,rub or rales, Chest wall is symmetric and without deformity. Gastrointestinal: Abdomen symmetric, non-distended, soft, non-tender, normal bowel sounds x4 quadrant, normoactive, no hepatosplenomegaly Lower extremities could not be examined as patient denied due to pain Neurological: Could not be performed Skin: Warm and dry Vital Signs Date Time Temp Pulse Resp B/P (MAP) Pulse Ox O2 Delivery O2 Flow Rate FiO2 02/07/25 08:18 16 02/07/25 08:03 90 Room Air 0.0 21 02/07/25 07:57 95 02/07/25 06:19 97.8 111/67 (82) Laboratory Tests Test 02/06/25 18:26 02/06/25 20:42 02/06/25 20:51 02/06/25 21:19 White Blood Count 7.6 X10'3 Red Blood Count 4.13 X10'6 Hemoglobin 12.3 g/dl Hematocrit 36.3 % Mean Corpuscular Volume 87.8 FL Mean Corpuscular Hemoglobin 29.6 PG Mean Corpuscular Hemoglobin Concent 33.8 g/dL Red Cell Distribution Width 13.7 % Platelet Count 265 X10'3 Mean Platelet Volume 8.5 FL Neutrophils (%) (Auto) 60.6 % Lymphocytes (%) (Auto) 26.4 % Monocytes (%) (Auto) 7.2 % Eosinophils (%) (Auto) 4.8 % Basophils (%) (Auto) 1.0 % Neutrophils # (Auto) 4.6 X10'3 Lymphocytes # (Auto) 2.0 X10'3 Monocytes # (Auto) 0.6 X10'3 Eosinophils # (Auto) 0.4 X10'3 Basophils # (Auto) 0.1 X10'3 CBC Comment Sodium Level 142 MMOL/L Potassium Level 3.2 MMOL/L Chloride Level 106 MMOL/L Carbon Dioxide Level 28.9 MMOL/L Anion Gap 7 Blood Urea Nitrogen 17 MG/DL Creatinine 0.94 MG/DL Estimated GFR/1.73 m2 61 ML/MIN BUN/Creatinine Ratio 18.1 Glucose Level 93 MG/DL Hemoglobin A1c 5.8 % Calcium Level 8.1 MG/DL Troponin I High Sensitivity 8 ng/L 10 ng/L 9 ng/L Pro-B-Type Natriuretic Peptide 126 PG/ML Albumin 3.4 G/DL Chemistry Comments Urine Specimen Description Cln catch midstream Urine Color Yellow Urine Clarity Cloudy Urine pH 6.5 Urine Specific [place] 1.020 Urine Protein Negative mg/dl Urine Glucose (UA) Negative mg/dl Urine Ketones Negative mg/dl Urine Occult Blood Negative Urine Nitrite Positive Urine Bilirubin Negative Urine Urobilinogen 0.2 E.U/dL Urine Leukocyte Esterase Negative Urine RBC 0-2 /HPF Urine WBC 10-20 /HPF Urine Squamous Epithelial Cells Moderate /LPF Urine Bacteria 4+ /HPF Urine Culture Indicated Indicated Volume Urine Centrifuged 10 ml Urine Comment Urine Opiates Screen Negative Urine Methadone Screen Negative Urine Fentanyl Screen Negative Urine Barbiturates Screen Negative Urine Phencyclidine Screen Negative Urine Amphetamines Screen Positive Urine Benzodiazepines Screen Negative Urine Cocaine Screen Negative Urine Cannabinoids Screen Positive Drug Screen Comment Troponin I High Sens Percent Delta 25 % 12 % Troponin I Hi Sens Absolute Change 2 ng/L 1 ng/L Imaging Chest x-ray-no acute pulmonary process and cardiac process Discharge instructions Patient left against medical advice *Problems/Diagnosis: (1) Acute metabolic encephalopathy Total Time Spent on D/C: Up to 30 Minutes Counseling Services Smoking & Tobacco Cessation: > 10 Minutes Date of Service: Feb 07, 2025 Billing Provider: AB CERVANTES MD Common Visit Codes: 75173-RIM/OBS DISCH DAY <30MIN [facility], [facility] Feb 07, 2025 12:42 AB CERVANTES MD Feb 08, 2025 06:42
--- NOTE | 2025-02-08 17:07 | CARDIOLOGY REPORT ---
APPROVED REPORT EXAM: Limited 2D, Doppler, and color-flow Echocardiogram. Patient Location: 402 Blood Pressure: 111/67 mmHg Heart Rate: 106 bpm Indications Abnormal EKG Syncope ProBNP: 126 Hypertension NO LOGGING [employer] NO Previous ECHO 2D Dimensions LA Diam 2.6 cm IVSd 0.9 (0.7-1.1cm) LVDd 3.7 cm PWd 0.9 (0.7-1.1cm) IVSs 0.9 (0.8-1.2cm) LVDs 2.7 (2.5-4.0cm) PWs 1.6 (0.8-1.2cm) LVOT Diameter 1.82 (1.8-2.4cm) LVEF(%) 53.4 (>50%) FS (%) 26.9 % SV 30.7 ml CO 3.3 L/min M-Mode Dimensions Left Atrium(MM) 3.23 (2.5-4.0cm) Aortic Root 2.47 (2.2-3.7cm) Aortic Cusp Exc 1.54 (1.5-2.0cm) MV EPSS 1.3 (<0.5cm) Aortic Valve LVOT VTI 20.93 cm LVOT Peak Raman. 108.5 cm/s Tricuspid Valve TR P. Velocity 274 cm/s RAP ESTIMATE 10 mmHg TR Peak Gr. 30 mmHg RVSP 40 mmHg LEFT VENTRICLE Normal LV size and wall thickness. Overall systolic function is normal. Overall LVEF is 55%. RIGHT VENTRICLE RV is normal size and function. ATRIA The left atrium size is normal. AORTIC VALVE Trileaflet AV appears mildly sclerotics. No insufficiency by color and spectral flow Doppler. AV not fully evaluated due to patient terminating exam. MITRAL VALVE Mitral valve leaflets are mildly thickened with mild annular calcification. No stenosis. Trace regurgitation. MV not fully evaluated due to patient terminating exam. TRICUSPID VALVE The tricuspid valve is normal in structure with trace regurgitation. PULMONIC VALVE Pulmonic valve is not well visualized. GREAT VESSELS The aortic root is normal in size. IVC was not visualized due to patient terminated the exam. PERICARDIUM Normal pericardium. No effusion. Other Information Study Quality: Adequate Conclusion Overall LVEF is 55%. Normal LV size and wall thickness. Overall systolic function is normal. RV is normal size and function. Trileaflet AV appears mildly sclerotics. No insufficiency by color and spectral flow Doppler. AV not fully evaluated due to patient terminating exam. Mitral valve leaflets are mildly thickened with mild annular calcification. No stenosis. Trace regurgitation. MV not fully evaluated due to patient terminating exam. The tricuspid valve is normal in structure with trace regurgitation. Normal pericardium. No effusion.
[2025-02-10] MEDS ORDERED: FLU VACC TS2025-26(6MOS UP)/PF (FLULAVAL) 45 MCG/0.5 ML SYRINGE IMVAC ONE (07:50)
[2025-02-10] MEDS ORDERED: PNEUMOC 20-VAL CONJ-DIP CRM/PF 0.5 ML SYRINGE IMVAC ONE (07:50)
== END 2025-02-07 09:41 | disposition left against medical advice (07) | DRG 463 ==
LOC: ER 18:11 → ED HOLD 23:07 → EDBEDREQ 02-07 00:24 → ORTHO 4S 02-07 01:24
PROVIDERS: ADMIT Internal Medicine; ATTEND Internal Medicine
DX: N39.0 Urinary tract infection, site not specified (principal); G93.41 Metabolic encephalopathy; F32.A Depression, unspecified; I10 Essential (primary) hypertension; J44.89 Other specified chronic obstructive pulmonary disease; F15.90 Other stimulant use, unspecified, uncomplicated; Z53.21 Procedure and treatment not carried out due to patient leaving prior to being seen by health care provider; Z79.899 Other long term (current) drug therapy; Z87.11 Personal history of peptic ulcer disease
CPT/HCPCS: 36415; 71045; 80048; 80305; 81001; 83036; 83880; 84484; 85025; 87077; 87081; 87088; 87186; 93005; 93308; 94640; 94760; 99285; A6258; G0378; J7030